=== PATIENT | male | born 1980 | race Caucasian/White ===

== ENCOUNTER → 2021-05-30 | Outpatient (CLI) | payer OTHER ==
--- NOTE | 2021-05-31 15:47 | SLEEPCENT ---
DATE: 05/30/2021 ORDERED BY: TIARA Cardoso [facility] Nocturnal polysomnography was performed for evaluation of sleep physiology in this patient with complaints of poor sleep and to rule out the possibility of obstructive sleep apnea syndrome. Eight hours and 48 minutes of data were reviewed. There were 384 minutes of sleep identified. Sleep latency was prolonged at 82 minutes. REM latency was mildly prolonged at 123 minutes. Sleep architecture once established was fair with some fragmentation. Overall sleep efficiency was 74.5%. The electrocardiogram showed a sinus rhythm with an average heart rate of 50 beats per minute. Rate range 40 to 75. EEG showed normal waveforms for wake and sleep stages. There were no focal events identified. There were only 7 respiratory events identified of 10 seconds in duration or greater for an apnea/hypopnea index well within normal limits at 1.1. Snoring, was however noted and arousals from respiratory events in total occurred 0.5 times per hour. There were no significant oxygen desaturations below 90%. Some scattered activity was noted in the limb leads. No trains of events were seen and limb movement arousal index was 6.6. IMPRESSIONS: Normal nocturnal polysomnography with snoring.
== END ==
LOC: M SLEEP 20:00
PROVIDERS: ATTEND Nurse Practitioner Primary Care
DX: R06.83 Snoring (principal)

== ENCOUNTER → 2021-08-16 | Outpatient (CLI) | payer OTHER ==
[~2021-08-16] MED LIST: VENTAER INH
== END ==
LOC: M LABSMTC 10:24
PROVIDERS: ATTEND Anesthesiology
DX: Z01.812 Encounter for preprocedural laboratory examination (principal); Z20.822 Contact with and (suspected) exposure to COVID-19

== ENCOUNTER 2021-08-20 12:54 | Day surgery (SDC) | payer OTHER ==
[~2021-08-20] VITALS: Ht 167.6 cm; Wt 75.3 kg
[2021-08-20] MEDS ORDERED: NS 1,000 ML IV ONE (13:35)
[2021-08-20] MEDS ORDERED: propofoL 200 MG/20 ML VIAL As Ordered ONE (15:20)
[2021-08-20] MEDS ORDERED: LIDOCAINE 2% 100MG/5ML SDV (FOR ANES.) As Ordered ONE (15:20)
[2021-08-20 16:10] VITALS: BP 139/81
== END 2021-08-20 16:11 | disposition home or self-care (01) ==
LOC: M SDC 12:54
PROVIDERS: ATTEND Internal Medicine Gastroenterology
DX: K62.89 Other specified diseases of anus and rectum (principal); K64.8 Other hemorrhoids; K57.30 Diverticulosis of large intestine without perforation or abscess without bleeding; G43.909 Migraine, unspecified, not intractable, without status migrainosus; Z79.899 Other long term (current) drug therapy